=== PATIENT | female | born 1965 | race African-American/Black ===

== ENCOUNTER 2019-05-28 07:54 | Day surgery (SDC) | payer OTHER, BC ==
[2019-05-25 14:56] VITALS: BMI 32.2
--- NOTE | 2019-05-28 09:25 | HP ---
History & Physical Update - History History: No Change - Physical Physical: No Change - Assessment Assessment: No Change - Plan Plan: No Change
[2019-05-28] MEDS ORDERED: MIDAZOLAM HCL 2 MG/2 ML SINGLE DOSE VIAL ONE (09:54)
[2019-05-28] MEDS ORDERED: BUPIVACAINE HCL/PF 0.5% (5 MG/ML) 30 ML VIAL IJ ONE (09:54)
[2019-05-28] MEDS ORDERED: LIDOCAINE 1%/EPI 1:100000 (20 ML MULTI DOSE VIAL) ONE (10:51)
[2019-05-28] MEDS ORDERED: LIDOCAINE 1%/EPI 1:100000 (20 ML MULTI DOSE VIAL) INF ONE (10:55)
[2019-05-28] MEDS ORDERED: ceFAZolin SODIUM 1 GM VIAL ONE (10:59)
[2019-05-28] MEDS ORDERED: ONDANSETRON 4 MG/2 ML VIAL ONE (11:31)
--- NOTE | 2019-05-28 11:56 | OP ---
Operative Note - Note: Operative Date: 05/28/19 Pre-Operative Diagnosis: battery malfunction Operation: replacment of nerve stimultaor battery Surgeon: Benjamin Montalvo Minute Clerk For Basic Traffic: Kimberly Mccabe Anesthesiologist/PRODUCTION DIRECTOR: Adama Larson Anesthesia: Spinal Specimens Removed: battery Estimated Blood Loss (mls): 5 Fluid Volume Replaced (mls): 700 Operative Report Dictated: Yes
[2019-05-28] MEDS ORDERED: oxyCODONE HCL 5 MG TABLET PO PRN (11:57)
[2019-05-28] MEDS ORDERED: ONDANSETRON 4 MG/2 ML VIAL IVPUSH PRN (11:57)
--- NOTE | 2019-05-28 11:58 | SURG ---
Surgery Warp Spinner Note Warp Spinner: Kimberly Mccabe PA-C Date of Service: 05/28/19 Diagnosis: battery malfunction Procedure: replacement of nerve stimulator battery I was present for the entirety of the operative procedure. For further detail, please refer to operative report.
[2019-05-28] MEDS ORDERED: LACTATED RINGERS SOLUTION 1,000 ML IV SCH (12:00)
[2019-05-28] MEDS ORDERED: diphenhydrAMINE HCL 25 MG CAPSULE (FP) PO ONE (13:24)
[2019-05-28 14:35] VITALS: TEMP 98
[2019-05-28 14:41] VITALS: PULSE 58
[2019-05-28 14:46] VITALS: BP 126/80
--- NOTE | 2019-05-28 15:59 | OP ---
DATE OF OPERATION: 05/28/2019 PREOPERATIVE DIAGNOSIS: Malfunction spinal cord stimulator battery. POSTOPERATIVE DIAGNOSIS: Malfunction spinal cord stimulator battery. PROCEDURE PERFORMED: Revision of spinal cord stimulator battery. SURGEON: Gab Montalvo MD ASP NET DEVELOPER: ELENA Olsen ESTIMATED BLOOD LOSS: 50 mL. INTRAVENOUS FLUIDS: Per anesthesia. ANESTHESIA: Spinal/TLIP block. COMPLICATIONS: There were none. DISPOSITION: Patient brought to the PACU in stable condition. INDICATIONS FOR SURGERY: Patient is a 54-year-old female who has been suffering from pain from her back down her legs. She had previously had a spinal cord stimulator placed. She was interested in replacing the battery. Risks, benefits, and alternatives were discussed, and the patient consented to surgery. DESCRIPTION OF PROCEDURE: Patient was brought to the operating room by anesthesia staff. After appropriate patient identification was performed, spinal anesthesia was given. A TLIP block was also given. Patient was placed prone onto the OR table with all areas and bony prominences well padded at this time. Her back was prepped and draped in the usual sterile manner. At this point, a time-out was completed. The incision was made over her spinal cord stimulator battery. Dissection was continued down to the battery. Battery was visualized. The leads were removed. The battery was replaced. It was tested. It was fine. The leads were placed back in. Everything was locked down. Fascia was closed with 2-0 Vicryl suture. Skin was closed with 3-0 Monocryl suture. Dermabond was applied. Steri-Strips were applied. A sterile dressing was applied. Patient was placed supine on the OR bed, brought to the PACU in stable condition. GAB MONTALVO M.D. [id number]
--- NOTE | 2019-06-01 17:01 | PATH ---
Surgical Pathology Report Patient Name: DAVID LOERA Med. Rec. #: [id number] /Age/Gender: 1965 (Age: 54) / F Account: [id number] Location: COUNT INCLUDES THE [facility] Taken: 05/28/2019 Received: 05/28/2019 Reported: 06/01/2019 Physicians: Benjamin Montalvo M.D. Specimen(s) Received EXPLANT FROM PATIENT'S BACK Clinical History Battery malfunction Final Diagnosis EXPLANT FROM PATIENT BACK, REMOVAL: PATTERN SCRATCHER CONSISTENT WITH BATTERY. GROSS EXAMINATION ONLY. Electronically Signed Allan Merino M.D. Gross Description Received fresh labeled "explant from patient back," is a 5.4 x 4.5 x 1.0 cm napier metallic device, consistent with a battery. The specimen has the following inscription: "[employer] REF: [id number] SN: [id number]." No soft tissue is present. No sections are submitted, gross only. DL/05/29/2019 saudi05/29/2019
== END 2019-05-28 14:20 | disposition home or self-care (01) ==
LOC: FASU 07:54
PROVIDERS: ATTEND Orthopaedic Surgery Orthopaedic Surgery of the Spine
PROC: 0JH70MZ Insertion of Stimulator Generator into Back Subcutaneous Tissue and Fascia, Open Approach (ICD-10-PCS; 2019-05-28)
PROC: 0JPT0MZ Removal of Stimulator Generator from Trunk Subcutaneous Tissue and Fascia, Open Approach (ICD-10-PCS; principal; 2019-05-28 11:12)
DX: T85.193A Other mechanical complication of implanted electronic neurostimulator, generator, initial encounter (principal); Y82.8 Other medical devices associated with adverse incidents; Y92.9 Unspecified place or not applicable
CPT/HCPCS: 63685; L8679; 84703; 88300-TC; 94760